=== PATIENT | female | born 1995 | race African-American/Black ===

== ENCOUNTER 2021-12-08 16:12 | Emergency (ER) | payer MEDICAID ==
[~2021-12-08] VITALS: Ht 170.2 cm; Wt 91.0 kg
[2021-12-08 18:04] LABS: BASOPHILS % 0.3 % (0.0-2.0); EOSINOPHILS % 1.4 % (0.0-5.0); HEMATOCRIT. 39.3 % (36.0-48.0); HEMOGLOBIN. 13.1 g/dL (12.0-16.0); LYMPHOCYTES % 43.5 % (20.0-50.0); MEAN CORPUSCULAR HEMOGLOBIN 26.7 pg (28.0-32.0); MEAN CORPUSCULAR VOLUME 80.2 fL (81.0-99.0); MEAN PLATELET VOLUME 8.6 fl (7.4-10.4); MONOCYTES % 4.4 % (2.0-8.0); NEUTROPHILS % 50.4 % (40.0-76.0); PLATELET 267 x1000/uL (130-400); RED CELL DISTRIBUTION WIDTH 16.9 % (11.6-14.6)
[2021-12-08 18:11] LABS: CHLORIDE 109 mEq/L (98-107)
[2021-12-08 18:29] LABS: ETHANOL BLOOD < 10 mg/dL
[2021-12-08 20:28] LABS: CLARITY URINE CLOUDY (CLEAR); COLOR URINE YELLOW (YELLOW); KETONES URINE 1+ (NEGATIVE); LEUKOCYTE ESTERASE URINE 3+ (NEGATIVE); NITRITE URINE NEGATIVE (NEGATIVE); OCCULT BLOOD URINE 2+ (NEGATIVE); PH URINE 7.5 (4.5-8.0); PROTEIN URINE TRACE (NEGATIVE); SPECIFIC GRAVITY URINE 1.016 (1.005-1.030); UROBILINOGEN URINE 0.2 E.U./dL (0.2-1.0)
[2021-12-08 20:41] LABS: HCG SCREEN NEGATIVE
[2021-12-08 20:45] LABS: *AMPHETAMINES SCREEN URINE NEGATIVE (NEGATIVE); *BARBITURATES SCREEN URINE NEGATIVE (NEGATIVE); *BENZODIAZEPINES SCREEN URINE NEGATIVE (NEGATIVE); METHADONE URINE SCREEN NEGATIVE (NEGATIVE); OPIATES URINE SCREEN NEGATIVE (NEGATIVE)
[2021-12-08 20:46] LABS: *COCAINE SCREEN URINE PRESUMTIVE POSITIVE (NEGATIVE); CANNABINOID URINE SCREEN PRESUMTIVE POSITIVE (NEGATIVE); PHENCYCLIDINE URINE SCREEN PRESUMTIVE POSITIVE (NEGATIVE)
[2021-12-08] MEDS: NITROFURANTOIN 100MG M/M CAPSULE PO SCH (22:13)
[2021-12-09] MEDS ORDERED: NITR-87 MT (00:08)
[2021-12-09] MEDS: NITROFURANTOIN 100MG M/M CAPSULE PO SCH (09:00)
[2021-12-09 09:15] VITALS: BP 112/74
== END 2021-12-09 09:30 | disposition home or self-care (01) ==
LOC: ER 16:12
DX: F14.151 Cocaine abuse with cocaine-induced psychotic disorder with hallucinations (principal); R45.851 Suicidal ideations; N39.0 Urinary tract infection, site not specified; F20.9 Schizophrenia, unspecified; F16.10 Hallucinogen abuse, uncomplicated; F12.90 Cannabis use, unspecified, uncomplicated; Z59.02 Unsheltered homelessness
CPT/HCPCS: 36415; 80053; 80305; 80307; 80320; 80329; 81003; 84443; 84703; 85025; 87077; 87186; 99285; G0480

== ENCOUNTER 2022-02-13 14:26 | Emergency (ER) | payer MEDICAID ==
[~2022-02-13] VITALS: Ht 167.6 cm; Wt 68.0 kg
[~2022-02-13 14:26] MED LIST: NITR-87 MT
[2022-02-13] MEDS ORDERED: MIDAZOLAM HCL 2 MG/2 ML VIAL IM ONE (17:30)
[2022-02-13] MEDS ORDERED: OLANZAPINE 10 MG/VIAL IM ONE (17:30)
[2022-02-13 17:40] LABS: BASOPHILS % 0.6 % (0.0-2.0); EOSINOPHILS % 2.4 % (0.0-5.0); HEMATOCRIT. 37.6 % (36.0-48.0); HEMOGLOBIN. 12.3 g/dL (12.0-16.0); LYMPHOCYTES % 23.1 % (20.0-50.0); MEAN CORPUSCULAR VOLUME 82.5 fL (81.0-99.0); MEAN PLATELET VOLUME 9.4 fl (7.4-10.4); NEUTROPHILS % 68.9 % (40.0-76.0); PLATELET 255 x1000/uL (130-400); RED BLOOD CELL COUNT 4.56 mill/uL (4.2-5.4); RED CELL DISTRIBUTION WIDTH 17.7 % (11.6-14.6)
[2022-02-13 17:50] LABS: CLARITY URINE CLEAR (CLEAR); COLOR URINE YELLOW (YELLOW); KETONES URINE NEGATIVE (NEGATIVE); LEUKOCYTE ESTERASE URINE 1+ (NEGATIVE); NITRITE URINE POSITIVE (NEGATIVE); OCCULT BLOOD URINE TRACE (NEGATIVE); PH URINE 5.5 (4.5-8.0); PROTEIN URINE NEGATIVE (NEGATIVE); SPECIFIC GRAVITY URINE 1.016 (1.005-1.030)
[2022-02-13 17:58] LABS: CHLORIDE 105 mEq/L (98-107)
[2022-02-13 18:04] LABS: HCG SCREEN NEGATIVE
[2022-02-13 18:05] LABS: *BARBITURATES SCREEN URINE NEGATIVE (NEGATIVE); *BENZODIAZEPINES SCREEN URINE NEGATIVE (NEGATIVE); METHADONE URINE SCREEN NEGATIVE (NEGATIVE); OPIATES URINE SCREEN NEGATIVE (NEGATIVE)
[2022-02-13 18:08] LABS: ETHANOL BLOOD < 10 mg/dL
[2022-02-13 18:16] LABS: *AMPHETAMINES SCREEN URINE PRESUMTIVE POSITIVE (NEGATIVE); *COCAINE SCREEN URINE PRESUMTIVE POSITIVE (NEGATIVE); PHENCYCLIDINE URINE SCREEN PRESUMTIVE POSITIVE (NEGATIVE)
[2022-02-13 18:17] LABS: CANNABINOID URINE SCREEN PRESUMTIVE POSITIVE (NEGATIVE)
[2022-02-13] MEDS ORDERED: LIDOCAINE HCL 1% 20ML VIAL (Pyxis) INJ INFIL ONE (19:15)
[2022-02-13] MEDS ORDERED: CEFTRIAXONE SODIUM 1 G/VIAL IM ONE (19:15)
[2022-02-13] MEDS ORDERED: CEFTRIAXONE SODIUM 1 G/VIAL IM NR (21:00)
[2022-02-13] MEDS ORDERED: LIDOCAINE HCL 1% 10 MG/ML 10ML VIAL IJ NR (21:00)
[2022-02-14] MEDS: ARIPIPRAZOLE 5MG TABLET PO SCH (11:20)
[2022-02-14] MEDS ORDERED: MIDAZOLAM HCL 2 MG/2 ML VIAL IM ONE (17:45)
[2022-02-14] MEDS ORDERED: MAGNESIUM/ALUMINUM HYDROXIDE/SIMETHICONE 30ML UDC PO STA (18:45)
[2022-02-14] MEDS ORDERED: TRAZODONE HCL 50MG TABLET PO SCH (21:00)
[2022-02-15] MEDS ORDERED: LIDOCAINE HCL 1% 20ML VIAL (Pyxis) INJ INFIL ONE (00:15)
[2022-02-15] MEDS ORDERED: CEFTRIAXONE SODIUM 1 G/VIAL IM ONE (00:15)
[2022-02-15] MEDS ORDERED: AZITHROMYCIN 500 MG TABLET PO NR (06:30)
[2022-02-15] MEDS: ARIPIPRAZOLE 5MG TABLET PO SCH (09:44)
[2022-02-15 13:38] VITALS: BP 108/59
== END 2022-02-15 13:31 | disposition short-term general hospital (02) ==
LOC: ER 14:26
DX: F29 Unspecified psychosis not due to a substance or known physiological condition (principal); N39.0 Urinary tract infection, site not specified; F19.10 Other psychoactive substance abuse, uncomplicated; F20.9 Schizophrenia, unspecified; Z90.49 Acquired absence of other specified parts of digestive tract; Z20.822 Contact with and (suspected) exposure to COVID-19
CPT/HCPCS: 36415; 80053; 80305; 80307; 80320; 80329; 81003; 84703; 85025; 93005; 96372; 99285; C9803; J0696; J2250; J3490; U0003; U0005; G0480

== ENCOUNTER 2022-02-23 18:31 | Emergency (ER) | payer MEDICAID | END 2022-02-23 21:19 | disposition left against medical advice (07) | LOC: ER 18:31 | DX: Z53.21 Procedure and treatment not carried out due to patient leaving prior to being seen by health care provider (principal) ==